=== PATIENT | female | born 1995 | race African-American/Black ===

== ENCOUNTER 2023-12-16 13:14 | Emergency (ER) | payer OTHER ==
[~2023-12-16] VITALS: Ht 172.7 cm; Wt 214.0 kg
[2023-12-16 13:16] VITALS: O2SAT 98
[2023-12-16 13:45] VITALS: BP 116/72; PULSE 86; RESP 18
[2023-12-16] MEDS: IBUPROFEN 600MG TABLET PO ONE (13:45)
[2023-12-16 15:29] VITALS: TEMP 98.4
[2023-12-16] MEDS: ACETAMINOPHEN 325MG TABLET PO ONE (15:29)
[2023-12-16] MEDS ORDERED: NAPR220C61 MT (16:54)
== END 2023-12-16 19:30 | disposition home or self-care (01) ==
LOC: ER 14:26
DX: S89.92XA Unspecified injury of left lower leg, initial encounter (principal); G89.11 Acute pain due to trauma; J45.909 Unspecified asthma, uncomplicated; Y08.89XA Assault by other specified means, initial encounter; Y93.89 Activity, other specified; Y92.89 Other specified places as the place of occurrence of the external cause; Y99.8 Other external cause status
CPT/HCPCS: 73560; 73590; 99284; Z7610

== ENCOUNTER 2025-03-17 18:19 | Emergency (ER) | payer OTHER ==
[~2025-03-17] VITALS: Ht 162.6 cm; Wt 91.0 kg
[~2025-03-17 18:19] MED LIST: NAPR220C61 MT
[2025-03-17 18:23] VITALS: TEMP 36.5; O2SAT 99
[2025-03-17] MEDS: ONDANSETRON HCL 4MG/2ML INJ IV ONE (20:01)
[2025-03-17] MEDS: MORPHINE SULFATE 2 MG/ML INJ (NOT FOR IM USE) IV ONE ×2 (20:02→20:41)
[2025-03-17] MEDS ORDERED: MORPHINE SULFATE 4 MG/ML INJ (FOR IV/IM USE) IV ONE (20:15)
[2025-03-17 20:22] LABS: BASOPHILS % 0.1 % (0.0-2.0); EOSINOPHILS % 0.3 % (0.0-5.0); HEMATOCRIT. 36.7 % (36.0-48.0); HEMOGLOBIN. 12.3 g/dL (12.0-16.0); LYMPHOCYTES % 14.7 % (20.0-50.0); MEAN PLATELET VOLUME 7.1 fl (7.4-10.4); MONOCYTES % 7.2 % (2.0-8.0); NEUTROPHILS % 77.7 % (40.0-76.0); PLATELET 414 x1000/uL (130-400); RED BLOOD CELL COUNT 4.15 mill/uL (4.2-5.4); RED CELL DISTRIBUTION WIDTH 13.1 % (11.6-14.6)
[2025-03-17 20:32] LABS: HCG SCREEN POSITIVE
[2025-03-17 20:35] LABS: INR 1.1
[2025-03-17 20:37] LABS: CREATININE 0.7 mg/dL (0.6-1.0); UREA NITROGEN BLOOD 10 mg/dL (9-23)
[2025-03-17 20:38] LABS: ASPARTATE AMINOTRANSFERASE 18 IU/L (<34)
[2025-03-17 20:39] LABS: BILIRUBIN DIRECT 0.2 mg/dL (<=3.0); BILIRUBIN TOTAL 0.6 mg/dL (0.1-1.0); PROTEIN TOTAL 6.7 g/dL (6.0-8.3)
[2025-03-17] MEDS: KETOROLAC 30MG/ML VIAL IM ONE (20:41)
[2025-03-17] MEDS: ACETAMINOPHEN 1000MG/100ML 100 ML IV ONE (23:00)
[2025-03-17] MEDS: MORPHINE SULFATE 4 MG/ML INJ (FOR IV/IM USE) IV ONE (23:20)
[2025-03-17] MEDS ORDERED: LIDO-53 TP (23:35)
[2025-03-17] MEDS ORDERED: IBUP-2028 MT (23:35)
[2025-03-17] MEDS ORDERED: ACET-2708 MT (23:35)
[2025-03-18 00:20] VITALS: BP 118/83; PULSE 70; RESP 12; O2SAT 100
== END 2025-03-18 00:22 | disposition home or self-care (01) ==
LOC: ER 18:19
DX: M25.531 Pain in right wrist (principal); J45.909 Unspecified asthma, uncomplicated; V89.2XXA Person injured in unspecified motor-vehicle accident, traffic, initial encounter; Y93.89 Activity, other specified; Y92.89 Other specified places as the place of occurrence of the external cause; Y99.8 Other external cause status
CPT/HCPCS: 99285; 76705; 96374; 96375; 80076; 80048; 84703; 84702; 83690; 85025; 85610; 85730; 36415; 73080; 73110; 76856; 29125; 96372; 96376; J1885; J2405; J2270 ×2; J0131